=== PATIENT | male | born 1995 | race Caucasian/White ===

== ENCOUNTER 2021-07-17 23:59 | Emergency (ER) | payer OTHER ==
[~2021-07-17] VITALS: Ht 170.2 cm; Wt 64.4 kg
[2021-07-18 00:44] VITALS: BP 150/78
--- NOTE | 2021-07-18 01:16 | NUR ---
BIB [employer] CUSTODY C/O LOSS OF TASTE AND POSSIBLE COVID FOR O.K. TO BOOK CLEARANCE. PT AWAKE AND ALERT BREATHING EVEN AND UNLABORED O2 SAT WNL AND DENIES SOB. WAS AT BEDSIDE FOR EVAL.
--- NOTE | 2021-07-18 01:43 | NUR ---
DISCHARGED T OLAPD IN CUSTODY
== END 2021-07-18 01:43 | disposition home or self-care (01) ==
LOC: ER 07-18 00:03
DX: R43.9 Unspecified disturbances of smell and taste (principal); Z20.822 Contact with and (suspected) exposure to COVID-19; R03.0 Elevated blood-pressure reading, without diagnosis of hypertension
CPT/HCPCS: 87426; 99283; C9803